=== PATIENT | female | born 1985 | race Caucasian/White ===

== ENCOUNTER 2023-03-09 23:02 | Emergency (ER) | payer OTHER ==
[2023-03-09 23:29] VITALS: BP 102/60; PULSE 72; RESP 18; TEMP 98.2; BMI 25.1
[2023-03-10] MEDS ORDERED: METOCLOPRAMIDE HCL INJECTION 10 MG/2 ML VIAL IVPB ONE (01:17)
[2023-03-10] MEDS ORDERED: ACETAMINOPHEN 1000 MG/100 ML BAG IVPB ONE (01:17)
[2023-03-10] MEDS ORDERED: SODIUM CHLORIDE 0.9% 500 ML INFUS.BAG IV ONE (01:17)
[2023-03-10 01:42] LABS: BASO % 0.7 % (0-2.0); EOS % 3.8 % (0-4.5); HEMATOCRIT 37.4 % (32.4-45.2); HEMOGLOBIN 12.7 GM/dL (10.7-15.3); MCH 32.2 pg (25.7-33.7); MCHC 33.8 g/dl (32.0-36.0); MEAN CELL VOLUME 95.1 fl (80-96); MEAN PLT VOLUME 7.9 fl (7.5-11.1); NEUT % 54.5 % (42.8-82.8); PLATELET COUNT 317 10^3/uL (134-434); RBC 3.94 M/mm3 (3.60-5.2); RDW 13.9 % (11.6-15.6); WHITE BLOOD COUNT 8.1 K/mm3 (4.0-10.0)
[2023-03-10 01:55] LABS: POTASSIUM 3.6 mmol/L (3.5-5.1)
[2023-03-10 01:57] LABS: CALCIUM 8.4 mg/dL (8.5-10.1)
[2023-03-10 01:58] LABS: ALBUMIN 3.7 g/dl (3.4-5.0); BLOOD UREA NITROGEN 12.3 mg/dL (7-18); MAGNESIUM 2.3 mg/dL (1.8-2.4)
[2023-03-10 02:01] LABS: CREATININE 0.8 mg/dL (0.55-1.3)
[2023-03-10 02:02] LABS: TOT PROT 6.9 g/dl (6.4-8.2)
[2023-03-10 02:03] LABS: BILIRUBIN,TOTAL 0.7 mg/dL (0.2-1)
[2023-03-10] MEDS ORDERED: DEXAMETHASONE SOD PHOSPHATE 10 MG/1 ML VIAL IVPUSH ONE (03:09)
[2023-03-10] MEDS ORDERED: DEXAMETHASONE SOD PHOSPHATE 10 MG/1 ML VIAL ONE (03:20)
== END 2023-03-10 04:04 | disposition home or self-care (01) ==
LOC: JER 23:02
PROC: 3E033NZ Introduction of Analgesics, Hypnotics, Sedatives into Peripheral Vein, Percutaneous Approach (ICD-10-PCS; principal; 2023-03-10)
PROC: 3E033GC Introduction of Other Therapeutic Substance into Peripheral Vein, Percutaneous Approach (ICD-10-PCS; 2023-03-10)
PROC: 3E033GC Introduction of Other Therapeutic Substance into Peripheral Vein, Percutaneous Approach (ICD-10-PCS; 2023-03-10)
DX: R51.9 Headache, unspecified (principal); R20.0 Anesthesia of skin; M26.609 Unspecified temporomandibular joint disorder, unspecified side
CPT/HCPCS: 36415; 70450-TC; 80053; 83735; 84703; 85025; 99284-25; J1100